=== PATIENT | female | born 1960 | race Two or more races ===

== ENCOUNTER 2025-04-12 12:47 | Emergency (ER) | payer MEDICARE ==
[2025-04-12 16:26] LABS: #Basophils Less than 0.03 10x3/uL (0.0-0.2); #Eosinophils 0.04 10x3/uL (0.0-0.7); #Monocytes 0.37 10x3/uL (0.11-0.59); #Neutrophils 4.96 10x3/uL (1.40-6.50); %Basophils 0.3 % (0.0-1.0); %Eosinophils 0.6 % (0.0-10.0); %Lymphocytes 19.4 % (21.0-51.0); %Monocytes 5.5 % (0.0-10.0); %Neutrophils 74.1 % (42.0-75.0); Hematocrit 40.2 % (36.0-47.0); Hemoglobin 12.7 g/dL (12.0-16.0); Mean Corpuscular Hemoglobin 30.0 pg (27.0-31.0); Mean Corpuscular Volume 95.0 fL (78.0-98.0); Platelet Count 276 10x3/uL (130-400); Red Blood Cell (RBC) Count 4.23 mill/uL (4.20-5.40); White Blood Cell (WBC) Count 6.70 10x3/uL (4.8-10.8)
[2025-04-12 16:40] LABS: ALT (SGPT) 12 U/L (Less than 34); AST (SGOT) 23 U/L (11-34); Albumin 3.8 g/dL (3.1-4.5); Alkaline Phosphatase 77 U/L (40-110); Anion Gap 13 mmol/L (10-20); BUN (Urea Nitrogen) 14 mg/dL (9.8-20.1); Bilirubin, Total 0.4 mg/dL (0.3-1.2); Calc. Creatinine Clearance 0 mL/min (70-130); Calcium 9.2 mg/dL (7.8-10.44); Carbon Dioxide 26 mmol/L (23-31); Chloride 103 mmol/L (98-107); Globulin 2.8 g/dL (2.4-3.5); Glucose 86 mg/dL (80-115); INR-International Normal Ratio 1.0; PTT 28.9 sec (22.9-36.1); Potassium 4.3 mmol/L (3.5-5.1); Prothrombin Time 12.9 sec (12.0-14.7); Sodium 138 mmol/L (136-145)
== END 2025-04-12 17:05 | disposition home or self-care (01) ==
LOC: ERS 12:47
DX: S16.1XXA Strain of muscle, fascia and tendon at neck level, initial encounter (principal); R51.9 Headache, unspecified; R07.9 Chest pain, unspecified; F17.210 Nicotine dependence, cigarettes, uncomplicated; Y04.2XXA Assault by strike against or bumped into by another person, initial encounter
CPT/HCPCS: 36415; 70450; 72125; 80053; 85025; 85610; 85730; 93005; 94760

== ENCOUNTER 2025-04-19 13:07 | Emergency (ER) | payer MEDICARE ==
[2025-04-19] MEDS ORDERED: HYDROcodone/Acetaminophen 7.5/325 mg Tablet ONE (13:49)
== END 2025-04-19 13:52 | disposition home or self-care (01) ==
LOC: ERS 13:07
DX: Z76.0 Encounter for issue of repeat prescription (principal); G89.4 Chronic pain syndrome; F17.210 Nicotine dependence, cigarettes, uncomplicated
CPT/HCPCS: 99281